=== PATIENT | male | born 1945 | race Caucasian/White ===

== ENCOUNTER 2016-12-06 00:52 | Inpatient (IN) | payer MEDICARE, OTHER ==
[2016-12-06] VITALS (13 sets, daily range): BP systolic 119–155; BP diastolic 65–88
[~2016-12-06] VITALS: Ht 177.8 cm; Wt 100.2 kg
[2016-12-06] MEDS ORDERED: hydrALAZINE 20 MG/ML VIAL. IVP PRN (03:15)
[2016-12-06] MEDS ORDERED: ONDANSETRON PF 4 MG/2 ML VIAL. IV PRN ×2 (03:15→09:30)
[2016-12-06] MEDS: IV NORMAL SALINE 1000ML BAG 1,000 ML IV SCH ×2 (03:15→11:38)
[2016-12-06] MEDS ORDERED: ACETAMINOPHEN 325 MG TABLET. PO PRN (03:15)
[2016-12-06] MEDS: FENTANYL PF 100 MCG/2 ML VIAL. IV PRN ×4 (03:43→16:41)
[2016-12-06] MEDS ORDERED: FENTANYL PF 100 MCG/2 ML VIAL. IV ONE (05:30)
[2016-12-06] MEDS ORDERED: HYDR12.53 PO (07:21)
[2016-12-06] MEDS ORDERED: ASPI81TA2 PO (07:23)
--- NOTE | 2016-12-06 09:49 | RAD ---
AP portable chest radiograph 12/06/2016 Clinical History: Preop evaluation gallbladder surgery. An AP portable erect digital radiograph of the chest was obtained. No previous studies are available for comparison. The cardiac silhouette is borderline enlarged. The thoracic aorta is tortuous. Linear bands of subsegmental atelectasis and/or infiltrate are seen involving both lower lobes, left greater than right. No pneumothorax or pleural effusion is seen. Degenerative changes are seen involving the thoracic spine and both shoulders. Impression: Areas of subsegmental atelectasis and/or infiltrate are seen involving both lower lobes, left greater than right.
[2016-12-06 10:04] LABS: BASO # 0.1 x10^3/uL (0.0-0.2); BASO % 1 % (0-3); EOS % 8 % (0-3); HEMATOCRIT 38.1 % (39.0-53.0); LYMPH # 1.8 x10^3/uL (1.0-4.8); LYMPH % 30 % (24-48); MEAN CORPUSCULAR HEMOGLOBIN 29 pg (25-35); MEAN CORPUSCULAR HGB CONC 34 g/dL (31-37); MEAN CORPUSCULAR VOLUME 84 fL (79-100); MONO % 14 % (0-9); NEUT % 47 % (31-73); PLATELET COUNT 206 x10^3/uL (140-400); RED BLOOD COUNT 4.54 x10^6/uL (4.30-5.70); RED CELL DISTRIBUTION WIDTH 13.5 % (11.5-14.5); WHITE BLOOD COUNT 5.8 x10^3/uL (4.0-11.0)
[2016-12-06 10:10] LABS: INR 1.1 (0.8-1.1); PROTHROMBIN TIME PATIENT 13.7 SEC (11.7-14.0)
--- NOTE | 2016-12-06 10:18 | PDOC1 ---
History and Physical Date of Admission Date of Admission DATE: 12/06/16 TIME: 10:11 Source Source: Chart review, Patient History of Present Illness History of Present Illness patient transferred from [place], presented with acute onset of RUQ pain, pain to palpation, pain also pleuritic, s/p IV fentanyl, he reports pain 5./ 10, and is watching the clock for his next dose otherwise healthy prior tobacco, OA kneed mild HTN only CT scan at [facility] showed marked inflammed gallbladder without impacted stone visualized, he go Levaquin and Flagyl overnight near midnight Past Medical History Cardiovascular: HTN Pulmonary: No pertinent hx GI: No pertinent hx Heme/Onc: No pertinent hx Hepatobiliary: No pertinent hx Psych: No pertinent hx Musculoskeletal: Stiffness (knees, OA) Rheumatologic: No pertinent hx Infectious disease: No pertinent hx ENT: No pertinent hx Endocrine: Other (he is worried about developing Dm2, takes cinnamon , ?) Dermatology: No pertinent hx Past Surgical History Past Surgical History: Total knee replacement Family History Family History: No Significant Social History Smoke: Quit ALCOHOL: rare Current Medications Current Medications Current Medications Acetaminophen 650 mg 650 mg QIDPRN PRN PO MILD PAIN / TEMP; Start 12/06/16 at 03 :15 Sodium Chloride (Iv Sodium Chloride 0.9% 1000ml Bag) 1,000 ml @ 75 mls/hr [id number] IV ; Start 12/06/16 at 03:15 Fentanyl Citrate (Fentanyl 2ml Vial) 25 mcg PRN Q2HR PRN IV severe pain Last administered on 12/06/16t 07:47; Start 12/06/16 at 03:15; Stop 12/06/16 at 09:17; Status DC Hydralazine HCl (Apresoline) 10 mg PRN Q4HRS PRN IVP ELEVATED BP, SEE COMMENTS ; Start 12/06/16 at 03:15 Ondansetron HCl (Zofran) 4 mg PRN Q4HRS PRN IV NAUSEA/VOMITING; Start 12/06/16 at 03:15; Stop 12/06/16 at 09:19; Status DC Fentanyl Citrate (Fentanyl 2ml Vial) 25 mcg 1X ONCE IV Last administered on t 05:13; Start 12/06/16 at 05:30; Stop 12/06/16 at 05:31; Status DC Fentanyl Citrate (Fentanyl 2ml Vial) 50 mcg PRN Q2HR PRN IV severe pain; Start 12/06/16 at 09:30 Ondansetron HCl (Zofran) 4 mg PRN Q8HRS PRN IV NAUSEA/VOMITING; Start 12/06/16 at 09:30 Active Scripts Active Reported Aspirin 81 Mg Tab.chew Unknown Dose PO Hydrochlorothiazide Capsule (Hydrochlorothiazide) 12.5 Mg Capsule Unknown Dose PO DAILY Allergies Allergies: Coded Allergies: Penicillins (Verified Allergy, Intermediate, 12/06/16) morphine (Verified Allergy, Intermediate, 12/06/16) ROS General: No: Appetite, Chills, Fatigue, Malaise, Night Sweats, Other PSYCHOLOGICAL ROS: No: Anxiety, Behavioral Disorder, Concentration difficultie , Decreased libido, Depression, Disorientation, Hallucinations, Hostility, Irritablity, Memory difficulties, Mood Swings, Obsessive thoughts, Other, Physical abuse, Sexual abuse, Sleep disturbances, Suicidal ideation Eyes: No Blurry vision, No Decreased vision, No Double vision, No Dry eyes, No Excessive tearing, No Eye Pain, No Itchy Eyes, No Loss of vision, No Other, No Photophobia, No Scotomata, No Uses contacts, No Uses glasses HEENT: No: Epistaxis, Heacaches, Hearing change, Nasal congestion, Nasal discharge, Oral lesions, Other, Sinus pain, Sneezing, Snoring, Sore Throat, Tinnitus, Vertigo, Visual Changes, Vocal changes Respiratory: No: Cough, Hemoptysis, Orthopnea, Other, Pleuritic Pain, SOB with excertion, Shortness of breath, Sputum Changes, Stridor, Tachypnea, Wheezing Cardiovascular: No Chest Pain, No Edema, No Lt Headedness, No Orthopnea, No Other, No Palpitations, No Paroxysmal Noc. Dyspnea Gastrointestinal: Yes Abdominal Pain, No Constipation, No Diarrhea, No Hematochezia, No Melena, No Nausea, No Other , No Vomiting Genitourinary: No , No , No , No , No , No , No , No Discharge, No Dysuria, No Flank Pain, No Frequency, No Hematuria, No Incontinence, No Other, No Pain, No Retention, No Urgency Musculoskeletal: Yes Joint Pain (knees), No Gait Disturbance, No Joint Stiffness, No Joint Swelling, No Muscle Pain, No Muscular Weakness, No Other, No Pain In:, No Swelling In: Neurological: No Behavorial Changes, No Bowel/Bladder ControlChng, No Confusion , No Dizziness, No Gait Disturbance, No Headaches, No Impaired Coord/balance, No Memory Loss, No Numbness/Tingling, No Other, No Seizures, No Speech Problems , No Tremors, No Visual Changes, No Weakness Physical Exam General: Oriented X3, Cooperative, mild distress HEENT: Atraumatic, PERRLA, EOMI, Mucous membr. moist/pink Lungs: Clear to auscultation, Normal air movement Heart: S1S2, no murmurs Abdomen: Normal bowel sounds, Other (very tender, guarding RUQ, min pressure caused pain) Rectal Exam: not examined Extremities: No cyanosis, No edema, Normal pulses Skin: No rashes, No breakdown, No significant lesion Neuro: Normal speech, Sensation intact, Cranial nerves 3-12 NL, Reflexes 2+, Other Psych/Mental Status: Mood NL Vitals Vitals Vital Signs Date Time Temp Pulse Resp B/P Pulse Ox O2 Delivery O2 Flow Rate FiO2 12/06/16 07:00 98.0 86 18 137/83 93 Room Air 98.0 Labs Labs Laboratory Tests Test 12/06/16 09:45 White Blood Count 5.8x10^3/uL (4.0-11.0) Red Blood Count 4.54x10^6/uL (4.30-5.70) Hemoglobin 13.0g/dL (13.0-17.5) Hematocrit 38.1% (39.0-53.0) Mean Corpuscular Volume 84fL (79-100) Mean Corpuscular Hemoglobin 29pg (25-35) Mean Corpuscular Hemoglobin Concent 34g/dL (31-37) Red Cell Distribution Width 13.5% (11.5-14.5) Platelet Count 206x10^3/uL (140-400) Neutrophils (%) (Auto) 47% (31-73) Lymphocytes (%) (Auto) 30% (24-48) Monocytes (%) (Auto) 14% (0-9) Eosinophils (%) (Auto) 8% (0-3) Basophils (%) (Auto) 1% (0-3) Neutrophils # (Auto) 2.7x10^3uL (1.8-7.7) Lymphocytes # (Auto) 1.8x10^3/uL (1.0-4.8) Monocytes # (Auto) 0.8x10^3/uL (0.0-1.1) Eosinophils # (Auto) 0.4x10^3/uL (0.0-0.7) Basophils # (Auto) 0.1x10^3/uL (0.0-0.2) Prothrombin Time 13.7SEC (11.7-14.0) Prothromb Time International Ratio 1.1 (0.8-1.1) Laboratory Tests Test 12/06/16 09:45 White Blood Count 5.8x10^3/uL (4.0-11.0) Red Blood Count 4.54x10^6/uL (4.30-5.70) Hemoglobin 13.0g/dL (13.0-17.5) Hematocrit 38.1% (39.0-53.0) Mean Corpuscular Volume 84fL (79-100) Mean Corpuscular Hemoglobin 29pg (25-35) Mean Corpuscular Hemoglobin Concent 34g/dL (31-37) Red Cell Distribution Width 13.5% (11.5-14.5) Platelet Count 206x10^3/uL (140-400) Neutrophils (%) (Auto) 47% (31-73) Lymphocytes (%) (Auto) 30% (24-48) Monocytes (%) (Auto) 14% (0-9) Eosinophils (%) (Auto) 8% (0-3) Basophils (%) (Auto) 1% (0-3) Neutrophils # (Auto) 2.7x10^3uL (1.8-7.7) Lymphocytes # (Auto) 1.8x10^3/uL (1.0-4.8) Monocytes # (Auto) 0.8x10^3/uL (0.0-1.1) Eosinophils # (Auto) 0.4x10^3/uL (0.0-0.7) Basophils # (Auto) 0.1x10^3/uL (0.0-0.2) Prothrombin Time 13.7SEC (11.7-14.0) Prothromb Time International Ratio 1.1 (0.8-1.1) VTE Prophylaxis Ordered VTE Prophylaxis Devices: Yes VTE Pharmacological Prophylaxi: Contraindicated (may need surg today) Assessment/Plan Assessment/Plan Acute abd pain, RUQ pain, + Mckeon sign CT scan at [facility], gallbladder thickening, without impaced stone reported no fever, white cout 7.8 last night, repeat labs now, no bili, check chem 12 admit, acute gloria, surg consult, GI consult htn, on HCTZ mild obesity, BMi 31.7 GINA MCGRATH MD Dec 06, 2016 10:18
--- NOTE | 2016-12-06 10:29 | PDOC2 ---
GI CONSULT Reason For Consult: Cholecystitis HPI: HPI: 71 y/o male from [facility]. Was evaluated there for RUQ pain. Had one instance of this on 12/03 that resolved. Pain recurred yesterday and was much worse. Began on drive home after at [facility] for PT (recent right knee replacement), was unrelieved w/ rest and Sprite at home, vomited a few times. Worse w/ deep breathing. [facility] workup showed normal WBC, Hgb, plt, Cr, lipase, and LFTs. CT abd showed gallbladder distention w/ wall thickening and inflammatory changes c/ w cholecystitis. Labs so far here as below. Surgery consult pending. GI history significant for GERD controlled w/ famotidine Q a.m. w/ previous EGD years ago in [place] and occasional constipation improved w/ increased water intake w / previous colonoscopy (I believe at the [facility]) w/ benign polyps ~5 years ago (w/ 10 year follow-up recommended). Is on ASA 81mg QD due to recent knee surgery. PMH: PMH: HTN, HLD, GERD, constipation, arthritis, bilateral knee replacements (right last month), right rotator cuff repair, appendectomy, vasectomy FH: Family History: Cancer (breast) Social History: Smoke: Quit ALCOHOL: rare Drugs: None ROS: GEN: Denies fevers, chills, sweats HEENT: Denies blurred vision, sore throat CV: Denies chest pain RESP: Denies shortness of air, cough GI: Per HPI : Denies hematuria, dysuria ENDO: Denies weight changes NEURO: Denies confusion, dizziness MSK: +joint pain SKIN: Denies jaundice, pruritus VItals: Vitals: Vital Signs Date Time Temp Pulse Resp B/P Pulse Ox O2 Delivery O2 Flow Rate FiO2 12/06/16 07:00 98.0 86 18 137/83 93 Room Air 98.0 Labs: Labs: Laboratory Tests Test 12/06/16 09:45 White Blood Count 5.8x10^3/uL (4.0-11.0) Red Blood Count 4.54x10^6/uL (4.30-5.70) Hemoglobin 13.0g/dL (13.0-17.5) Hematocrit 38.1% (39.0-53.0) Mean Corpuscular Volume 84fL (79-100) Mean Corpuscular Hemoglobin 29pg (25-35) Mean Corpuscular Hemoglobin Concent 34g/dL (31-37) Red Cell Distribution Width 13.5% (11.5-14.5) Platelet Count 206x10^3/uL (140-400) Neutrophils (%) (Auto) 47% (31-73) Lymphocytes (%) (Auto) 30% (24-48) Monocytes (%) (Auto) 14% (0-9) Eosinophils (%) (Auto) 8% (0-3) Basophils (%) (Auto) 1% (0-3) Neutrophils # (Auto) 2.7x10^3uL (1.8-7.7) Lymphocytes # (Auto) 1.8x10^3/uL (1.0-4.8) Monocytes # (Auto) 0.8x10^3/uL (0.0-1.1) Eosinophils # (Auto) 0.4x10^3/uL (0.0-0.7) Basophils # (Auto) 0.1x10^3/uL (0.0-0.2) Prothrombin Time 13.7SEC (11.7-14.0) Prothromb Time International Ratio 1.1 (0.8-1.1) Allergies: Coded Allergies: Penicillins (Verified Allergy, Intermediate, 12/06/16) morphine (Verified Allergy, Intermediate, 12/06/16) Medications: Current Medications Medications (Trade) Dose Ordered Sig/Radha Route PRN Reason Start Time Stop Time Status Last Admin Dose Admin Fentanyl Citrate (Fentanyl 2ml Vial) 25 mcg PRN Q2HR PRN IV severe pain 12/06/16 03:15 12/06/16 09:17 DC 12/06/16 07:47 Fentanyl Citrate (Fentanyl 2ml Vial) 25 mcg 1X ONCE IV 12/06/16 05:30 12/06/16 05:31 DC 12/06/16 05:13 Imaging: Imaging: CXR 12/07/15 Impression: Areas of subsegmental atelectasis and/or infiltrate are seen involving both lower lobes, left greater than right. PE: GEN: NAD, pleasant HEENT: Atraumatic, PERRL LUNGS: clear anteriorly HEART: RRR ABD: NABS, RUQ tenderness EXTREMITY: No edema SKIN: No rashes, no jaundice NEURO/PSYCH: A & O 3 OTHER: present A/P: A/P: RUQ pain, vomiting -pain occurred 3/4 and resolved, recurred (worse) 3/6 w/ vomiting Abnormal CT -suggesting cholecystitis -on IV atbx H/o GERD -controlled w/ H2 ambar QD, previous EGD Constipation -occasional, improved w/ increased water intake CRC screen, h/o polyps -~5 years ago, reports 10 year f/u recommended Recent knee surgery -on ASA -- Surgery consulted. Will check abd US. CMP already ordered. CHAUNCEY OVALLES Dec 06, 2016 10:29
[2016-12-06 11:02] LABS: CALCIUM 8.8 mg/dL (8.5-10.1); CREATININE 0.7 mg/dL (0.7-1.3); GFR 111.8; POTASSIUM 3.8 mmol/L (3.5-5.1); TOTAL BILIRUBIN 1.2 mg/dL (0.2-1.0); TOTAL PROTEIN 5.9 g/dL (6.4-8.2)
--- NOTE | 2016-12-06 11:12 | PDOC2 ---
CONSULT Date of Consult Date of Consult DATE: 12/06/16 TIME: 11:10 Past Medical History Cardiovascular: HTN Pulmonary: No pertinent hx GI: No pertinent hx Heme/Onc: No pertinent hx Hepatobiliary: No pertinent hx Psych: No pertinent hx Musculoskeletal: Stiffness (knees, OA) Rheumatologic: No pertinent hx Infectious disease: No pertinent hx ENT: No pertinent hx Endocrine: Other (he is worried about developing Dm2, takes cinnamon , ?) Dermatology: No pertinent hx Past Surgical History Past Surgical History: Total knee replacement Family History Family History: No Significant Social History Quit ALCOHOL: rare Drugs: None Current Medications Current Medications Current Medications Acetaminophen 650 mg 650 mg QIDPRN PRN PO MILD PAIN / TEMP; Start 12/06/16 at 03 :15 Sodium Chloride (Iv Sodium Chloride 0.9% 1000ml Bag) 1,000 ml @ 75 mls/hr [id number] IV ; Start 12/06/16 at 03:15 Fentanyl Citrate (Fentanyl 2ml Vial) 25 mcg PRN Q2HR PRN IV severe pain Last administered on 12/06/16 07:47; Start 12/06/16 at 03:15; Stop 12/06/16 at 09:17; Status DC Hydralazine HCl (Apresoline) 10 mg PRN Q4HRS PRN IVP ELEVATED BP, SEE COMMENTS ; Start 12/06/16 at 03:15 Ondansetron HCl (Zofran) 4 mg PRN Q4HRS PRN IV NAUSEA/VOMITING; Start 12/06/16 at 03:15; Stop 12/06/16 at 09:19; Status DC Fentanyl Citrate (Fentanyl 2ml Vial) 25 mcg 1X ONCE IV Last administered on 05:13; Start 12/06/16 at 05:30; Stop 12/06/16 at 05:31; Status DC Fentanyl Citrate (Fentanyl 2ml Vial) 50 mcg PRN Q2HR PRN IV severe pain Last administered on 12/06/16 10:44; Start 12/06/16 at 09:30 Ondansetron HCl 4 mg 4 mg PRN Q8HRS PRN IV NAUSEA/VOMITING; Start 12/06/16 at 09 :30 Metronidazole (FLAGYL 500Mmg PREMIX) 100 ml @ 100 mls/hr Q8HRS IV ; Start at 11:00 Active Scripts Active Reported Aspirin 81 Mg Tab.chew Unknown Dose PO Hydrochlorothiazide Capsule (Hydrochlorothiazide) 12.5 Mg Capsule Unknown Dose PO DAILY Allergies Allergies: Coded Allergies: Penicillins (Verified Allergy, Intermediate, 12/06/16) morphine (Verified Allergy, Intermediate, 12/06/16) Vitals VITALS Vital Signs Date Time Temp Pulse Resp B/P Pulse Ox O2 Delivery O2 Flow Rate FiO2 12/06/16 07:00 98.0 86 18 137/83 93 Room Air 98.0 Labs Labs Laboratory Tests Test 12/06/16 09:45 White Blood Count 5.8x10^3/uL (4.0-11.0) Red Blood Count 4.54x10^6/uL (4.30-5.70) Hemoglobin 13.0g/dL (13.0-17.5) Hematocrit 38.1% (39.0-53.0) Mean Corpuscular Volume 84fL (79-100) Mean Corpuscular Hemoglobin 29pg (25-35) Mean Corpuscular Hemoglobin Concent 34g/dL (31-37) Red Cell Distribution Width 13.5% (11.5-14.5) Platelet Count 206x10^3/uL (140-400) Neutrophils (%) (Auto) 47% (31-73) Lymphocytes (%) (Auto) 30% (24-48) Monocytes (%) (Auto) 14% (0-9) Eosinophils (%) (Auto) 8% (0-3) Basophils (%) (Auto) 1% (0-3) Neutrophils # (Auto) 2.7x10^3uL (1.8-7.7) Lymphocytes # (Auto) 1.8x10^3/uL (1.0-4.8) Monocytes # (Auto) 0.8x10^3/uL (0.0-1.1) Eosinophils # (Auto) 0.4x10^3/uL (0.0-0.7) Basophils # (Auto) 0.1x10^3/uL (0.0-0.2) Prothrombin Time 13.7SEC (11.7-14.0) Prothromb Time International Ratio 1.1 (0.8-1.1) Sodium Level 143mmol/L (136-145) Potassium Level 3.8mmol/L (3.5-5.1) Chloride Level 107mmol/L (98-107) Carbon Dioxide Level 28mmol/L (21-32) Anion Gap 8 (6-14) Blood Urea Nitrogen 11mg/dL (8-26) Creatinine 0.7mg/dL (0.7-1.3) Estimated GFR (Cockcroft-Gault) 111.8 BUN/Creatinine Ratio 16 (6-20) Glucose Level 98mg/dL (70-99) Calcium Level 8.8mg/dL (8.5-10.1) Total Bilirubin 1.2mg/dL (0.2-1.0) Gamma Glutamyl Transpeptidase 34U/L (10-85) Aspartate Amino Transf (AST/SGOT) 10U/L (15-37) Alanine Aminotransferase (ALT/SGPT) 18U/L (16-63) Alkaline Phosphatase 81U/L (46-116) Total Protein 5.9g/dL (6.4-8.2) Albumin 3.0g/dL (3.4-5.0) Albumin/Globulin Ratio 1.0 (1.0-1.7) Laboratory Tests Test 12/06/16 09:45 White Blood Count 5.8x10^3/uL (4.0-11.0) Red Blood Count 4.54x10^6/uL (4.30-5.70) Hemoglobin 13.0g/dL (13.0-17.5) Hematocrit 38.1% (39.0-53.0) Mean Corpuscular Volume 84fL (79-100) Mean Corpuscular Hemoglobin 29pg (25-35) Mean Corpuscular Hemoglobin Concent 34g/dL (31-37) Red Cell Distribution Width 13.5% (11.5-14.5) Platelet Count 206x10^3/uL (140-400) Neutrophils (%) (Auto) 47% (31-73) Lymphocytes (%) (Auto) 30% (24-48) Monocytes (%) (Auto) 14% (0-9) Eosinophils (%) (Auto) 8% (0-3) Basophils (%) (Auto) 1% (0-3) Neutrophils # (Auto) 2.7x10^3uL (1.8-7.7) Lymphocytes # (Auto) 1.8x10^3/uL (1.0-4.8) Monocytes # (Auto) 0.8x10^3/uL (0.0-1.1) Eosinophils # (Auto) 0.4x10^3/uL (0.0-0.7) Basophils # (Auto) 0.1x10^3/uL (0.0-0.2) Prothrombin Time 13.7SEC (11.7-14.0) Prothromb Time International Ratio 1.1 (0.8-1.1) Sodium Level 143mmol/L (136-145) Potassium Level 3.8mmol/L (3.5-5.1) Chloride Level 107mmol/L (98-107) Carbon Dioxide Level 28mmol/L (21-32) Anion Gap 8 (6-14) Blood Urea Nitrogen 11mg/dL (8-26) Creatinine 0.7mg/dL (0.7-1.3) Estimated GFR (Cockcroft-Gault) 111.8 BUN/Creatinine Ratio 16 (6-20) Glucose Level 98mg/dL (70-99) Calcium Level 8.8mg/dL (8.5-10.1) Total Bilirubin 1.2mg/dL (0.2-1.0) Gamma Glutamyl Transpeptidase 34U/L (10-85) Aspartate Amino Transf (AST/SGOT) 10U/L (15-37) Alanine Aminotransferase (ALT/SGPT) 18U/L (16-63) Alkaline Phosphatase 81U/L (46-116) Total Protein 5.9g/dL (6.4-8.2) Albumin 3.0g/dL (3.4-5.0) Albumin/Globulin Ratio 1.0 (1.0-1.7) Assessment/Plan Assessment/Plan FND Wk # [id number] acute cholecystitis for l/s cholecystectomy R/B/A explained he will proceed Thanks for consult LOLI MCGHEE MD Dec 06, 2016 11:12
[2016-12-06] MEDS ORDERED: BUPIVAC MPF-EPI 0.5%-1:200000 30 ML VIAL. ONE (11:20)
[2016-12-06] MEDS ORDERED: SURGICEL HEMOSTAT 4X8 EACH. ONE (11:20)
[2016-12-06] MEDS ORDERED: IOHEXOL 300 MG/ML 50 ML VIAL. ONE (11:21)
[2016-12-06] MEDS ORDERED: ONDANSETRON PF 4 MG/2 ML VIAL. ONE (11:32)
[2016-12-06] MEDS ORDERED: PROPOFOL 20 ML IV ONE (11:32)
[2016-12-06] MEDS ORDERED: DEXAMETHASONE SOD PHOS 20 MG/5 ML VIAL. ONE (11:32)
[2016-12-06] MEDS ORDERED: LIDOCAINE 2% 100 MG/5 ML DISP.SYRIN. ONE (11:32)
[2016-12-06] MEDS ORDERED: ROCURONIUM 50 MG/5 ML VIAL. ONE (11:33)
[2016-12-06] MEDS ORDERED: FENTANYL PF 100 MCG/2 ML VIAL. ONE ×2 (11:33→12:22)
[2016-12-06] MEDS ORDERED: DESFLURANE > 120 MINUTES IH ONE (11:48)
[2016-12-06] MEDS: METRONIDAZOLE 500mg PREMIX 100 ML IV SCH ×2 (11:57→21:51)
[2016-12-06] MEDS ORDERED: NEOSTIGMINE METHYLSULFATE 5 MG/5 ML SYRINGE. ONE (12:19)
[2016-12-06] MEDS ORDERED: GLYCOPYRROLATE 1 MG/5 ML VIAL. ONE (12:20)
[2016-12-06] MEDS ORDERED: IV RINGERS,LACTATED 1000ML 1,000 ML IV SCH (12:32)
[2016-12-06] MEDS ORDERED: DIPHENHYDRAMINE 50 MG/ML VIAL IV PRN (12:45)
[2016-12-06] MEDS ORDERED: MIDAZOLAM HCL 2 MG/2 ML VIAL. IV PRN ×2 (12:45)
[2016-12-06] MEDS ORDERED: MEPERIDINE PF 25 MG/ML VIAL. IV PRN (12:45)
[2016-12-06] MEDS ORDERED: PROCHLORPERAZINE 10 MG/2 ML VIAL. IV PRN (12:45)
[2016-12-06] MEDS ORDERED: FENTANYL PF 100 MCG/2 ML VIAL. IV PRN ×3 (12:45)
[2016-12-06] MEDS ORDERED: LIDOCAINE 1% 1 ML SYRINGE. ID PRN (12:45)
--- NOTE | 2016-12-06 12:46 | RAD ---
Intraoperative cholangiogram 12/06/2016 Clinical history: Laparoscopic cholecystectomy. Fluoroscopic assistance was provided during an intraoperative cholangiogram. The total fluoroscopic time is listed as 15 seconds. 3 Digital spot radiographs of the right upper quadrant of the abdomen were obtained. These images demonstrate contrast opacifying the cystic duct remnant, common hepatic duct, left and right hepatic ducts and their branches and the common bile duct. Free spillage of contrast into the duodenum is noted. No filling defect is seen. Impression: Negative study.
--- NOTE | 2016-12-06 13:22 | PDOC ---
BRIEF OPERATIVE NOTE Date: Dec 06, 2016 Pre-Op Diagnosis acute cholecystitis Post-Op Diagnosis same with gangrenous cholecystitis Procedure Performed l/s cholecystectomy with cholangiograms Surgeon Margarito Supervisor Rubber Covering Gricelda SERRANO Anesthesia Type: General Blood Loss 20cc IV Fluid 1100cc Specimens Obtained GB Findings acute cholecystitis with gangrenous changes Complications none Additional Remarks Wk # [id number] LOLI MCGHEE MD Dec 06, 2016 13:22
--- NOTE | 2016-12-06 13:57 | EKG ---
[facility] [address] [place] [address] Test Date: 2016-12-06 Test Time: 13:56:33 Pat Name: MAHESH MERCEDES Department: Room: [facility] Gender: M Biology Specialist: JENNIFER : 1945 Requested By: GINA MCGRATH Order Number: [id number] Reading MD: Measurements Intervals Drift Rate: 89 P: 46 NM: 132 QRS: -18 QRSD: 90 T: 13 QT: 348 QTc: 424 Interpretive Statements SINUS RHYTHM LEFTWARD AXIS NO SPECIFIC ECG ABNORMALITIES RI6.01 No previous ECG available for comparison
--- NOTE | 2016-12-06 16:58 | OP ---
DATE OF SURGERY: 12/06/2016 PREOPERATIVE DIAGNOSIS: Acute cholecystitis. POSTOPERATIVE DIAGNOSIS: Acute cholecystitis with gangrenous cholecystitis. PROCEDURE: Laparoscopic cholecystectomy with cholangiogram. SURGEON: Jim Mcghee MD RESIDENCE DIRECTOR: ZACH Milton ANESTHESIA: General endotracheal. ESTIMATED BLOOD LOSS: 20 mL. IV FLUIDS: 1100 mL. INDICATIONS: The patient is a 71-year-old with right upper quadrant pain and the CT consistent with acute cholecystitis, brought for cholecystectomy. OPERATIVE FINDINGS: The gallbladder was acutely inflamed with some gangrenous changes. It was enveloped with omentum. There was a small amount of turbid fluid in the right upper quadrant. There were some omental adhesions in the right lower quadrant from remote open appendectomy. Remainder of the inspection of the abdomen failed to reveal obvious abnormalities. DESCRIPTION OF PROCEDURE: The patient was brought to the operating suite, given a general endotracheal anesthetic and the abdomen prepped and draped in usual sterile fashion. A supraumbilical incision was infiltrated with local anesthetic, sharply incised and a 5 mm Visiport used to gain the access into the abdominal cavity. Care was taken to avoid injury to abdominal contents. Pneumoperitoneum was established. Camera inserted and under direct vision, the epigastric, midclavicular, and lateral ports were placed. The gallbladder was exposed by taking down the omental adhesions. It was then aspirated approximately 40 mL of turbid bile to allow grasping of the fundus and retracting the gallbladder superolaterally. There were some mild fibrotic changes in the liver. The cystic duct and cystic artery were carefully exposed. A small vessel to the cystic duct was clipped to help with its exposure. We then clipped it on the gallbladder side. Cholangiograms were made. These were normal. In light of this, the catheter was removed. The cystic duct was clipped x 2 and divided, taking care to avoid injury or compromise the common duct. The cystic artery was then clipped and divided and the gallbladder freed from the bed with cautery dissection. The posterior branch of the cystic artery was encountered part way up the fossa, controlled with the clips and the gallbladder freed from the bed and placed in an EndoCatch bag. Hemostasis obtained with cautery and a small piece of Surgicel. A 19-Armenian round Sebastian drain was brought through the epigastric port out the lateral ports, sewn to the skin with silk stitch and left in the subhepatic space for postoperative drainage. Table returned to level. Gallbladder delivered through the epigastric incision. Epigastric incision closed with interrupted 0 Vicryl suture. Intra-abdominal pressure decreased to 6 cm of water. No bleeding from the epigastric closure or from the midclavicular port site after its removal or from the drain site. Abdomen then decompressed, camera slowly removed, no bleeding seen. Skin incisions closed with subcuticular 4-0 Monocryl. Steri-Strips and sterile dressings applied. The patient was awakened from his anesthetic and taken to the recovery room in satisfactory condition. JIM MCGHEE MD DR: ANJANA/lay JOB#: [id number] / [id number]
[2016-12-06] MEDS: OXYCODONE/APAP 5/325 TABLET. PO PRN (19:50)
[2016-12-06] MEDS ORDERED: ENOXAPARIN 40 MG/0.4 ML DISP.SYRIN. SQ SCH (22:00)
[2016-12-06] MEDS ORDERED: LEVOFLOXACIN 500 MG TABLET PO SCH (22:00)
[2016-12-07] MEDS: IV NORMAL SALINE 1000ML BAG 1,000 ML IV SCH (01:53)
[2016-12-07 03:00] VITALS: BP 119/82
[2016-12-07] MEDS: OXYCODONE/APAP 5/325 TABLET. PO PRN ×2 (04:25→12:07)
[2016-12-07] MEDS: METRONIDAZOLE 500mg PREMIX 100 ML IV SCH (05:43)
[2016-12-07 07:46] VITALS: BP 133/70
--- NOTE | 2016-12-07 10:29 | CONS ---
DATE OF CONSULTATION: 12/06/2016 SUBJECTIVE: The patient is a 71-year-old gentleman who last Monday after lunch went home, sat in his recliner, and developed some right upper quadrant pain. He thought laying a pillow over the area and pressing down would help, but this aggravated this problem. He went to bed Monday night and felt better Monday morning. Yesterday, he had a similar episode of sharp pain in the right upper quadrant in the afternoon, only this time it did not resolve. He was seen in the [facility] where [facility] scan showed thickening of the wall of his gallbladder. Because of unavailable surgical care there, he was transferred to [place], and we were asked to see him for evaluation of his complaints. He denies any similar previous episodes or history of specific food intolerance. He is active and otherwise healthy. PAST SURGICAL HISTORY: Bilateral total knee replacements, most recently last month on the right side. He had an appendectomy many, many years ago. PAST MEDICAL HISTORY: Medically, some hypertension, hyperlipidemia, GERD, low back pain. ALLERGIES: He is allergic to PENICILLIN and MORPHINE. ROUTINE MEDICATIONS: Include a daily aspirin and hydrochlorothiazide. SOCIAL HISTORY: He stopped smoking 2 years ago prior to his first knee replacement. He lives with his . FAMILY HISTORY: Noncontributory to this illness. REVIEW OF SYSTEMS: GENERAL: Denies chills or fevers. HEENT: No recent sore throat or earaches. RESPIRATORY: No productive cough or wheezing. CARDIAC: No chest pain or palpitations. GASTROINTESTINAL: No recent diarrhea, see HPI. GENITOURINARY: No increased frequency or dysuria. MUSCULOSKELETAL: History of osteoarthritis with knee replacements. SKIN: No recent breakdown or rashes. NEUROLOGIC: No headaches or recent visual changes. PSYCHIATRIC: No anxiety or depression. OBJECTIVE/PHYSICAL EXAMINATION: GENERAL: Reveals a well-developed, well-nourished male who is alert and oriented, in no acute distress. VITAL SIGNS: He is afebrile at 98, heart rate 86, blood pressure 137/83. HEENT: Normocephalic. EOMs intact. NECK: Supple. LUNGS: Clear. HEART: Has regular rate and rhythm. ABDOMEN: Belly is soft and nondistended. There is a well-healed right lower quadrant paramedian scar from previous appendectomy. There is tenderness to palpation in the right upper quadrant without appreciable mass. GENITAL AND RECTAL: Deferred. EXTREMITIES: Showed no gross skeletal abnormalities. There is a well-healed left knee replacement scar. There is a healing clean, dry scar on the right side that still has some Steri-Strips on. NEUROLOGIC: He is grossly intact. LABORATORY DATA: Checked at the ____ [place] last night showed a white count of 7800, hemoglobin of 14. Chemistries were unremarkable including a normal amylase, total bilirubin, and transaminases. Urinalysis shows a specific gravity of 1.057. CT scan showed some mild thickening of the gallbladder wall. IMPRESSION: 1. Right upper quadrant pain. 1.1. Cholecystitis. 1.2. Possible cholelithiasis. 2. Dehydration. 3. Hypertension. 4. Osteoarthritis. PLAN: I offered laparoscopic cholecystectomy. I explained the procedure to the patient and his who was at the bedside with risks including but not limited to bleeding, infection, injury to the bowel, liver, or bile ducts with resultant bile leak or bowel blockage. Also, the potential for an "open" procedure or having diarrhea postoperatively. He understands and will proceed. Thank you for asking us to see this gentleman and participate in his care. We will follow him with you during this hospitalization. LOLI MCGHEE MD DR: ANJANA/lay JOB#: [id number] / [id number]
--- NOTE | 2016-12-07 10:42 | PDOC ---
SURGICAL PROGRESS NOTE Subjective no c/o feels "better than before surgery" Vital Signs Vital Signs Date Time Temp Pulse Resp B/P Pulse Ox O2 Delivery O2 Flow Rate FiO2 12/07/16 07:46 98.9 84 20 133/70 93 Room Air 98.9 12/06/16 17:45 2.0 I&O Intake and Output 12/07/16 07:00 Intake Total 2870 ml Output Total 1600 ml Balance 1270 ml Intake Oral 1470 ml IV Total 1400 ml Output Urine Total 1500 ml Drainage Total 80 ml Estimated Blood Loss 20 ml PATIENT HAS A BELL: No General: Alert, Oriented X3, Cooperative, No acute distress Abdomen: Soft, Other (SIMRAN with small amount of serosanguineous output) Labs Laboratory Tests Test 12/06/16 09:45 White Blood Count 5.8x10^3/uL (4.0-11.0) Red Blood Count 4.54x10^6/uL (4.30-5.70) Hemoglobin 13.0g/dL (13.0-17.5) Hematocrit 38.1% (39.0-53.0) Mean Corpuscular Volume 84fL (79-100) Mean Corpuscular Hemoglobin 29pg (25-35) Mean Corpuscular Hemoglobin Concent 34g/dL (31-37) Red Cell Distribution Width 13.5% (11.5-14.5) Platelet Count 206x10^3/uL (140-400) Neutrophils (%) (Auto) 47% (31-73) Lymphocytes (%) (Auto) 30% (24-48) Monocytes (%) (Auto) 14% (0-9) Eosinophils (%) (Auto) 8% (0-3) Basophils (%) (Auto) 1% (0-3) Neutrophils # (Auto) 2.7x10^3uL (1.8-7.7) Lymphocytes # (Auto) 1.8x10^3/uL (1.0-4.8) Monocytes # (Auto) 0.8x10^3/uL (0.0-1.1) Eosinophils # (Auto) 0.4x10^3/uL (0.0-0.7) Basophils # (Auto) 0.1x10^3/uL (0.0-0.2) Prothrombin Time 13.7SEC (11.7-14.0) Prothromb Time International Ratio 1.1 (0.8-1.1) Sodium Level 143mmol/L (136-145) Potassium Level 3.8mmol/L (3.5-5.1) Chloride Level 107mmol/L (98-107) Carbon Dioxide Level 28mmol/L (21-32) Anion Gap 8 (6-14) Blood Urea Nitrogen 11mg/dL (8-26) Creatinine 0.7mg/dL (0.7-1.3) Estimated GFR (Cockcroft-Gault) 111.8 BUN/Creatinine Ratio 16 (6-20) Glucose Level 98mg/dL (70-99) Calcium Level 8.8mg/dL (8.5-10.1) Total Bilirubin 1.2mg/dL (0.2-1.0) Gamma Glutamyl Transpeptidase 34U/L (10-85) Aspartate Amino Transf (AST/SGOT) 10U/L (15-37) Alanine Aminotransferase (ALT/SGPT) 18U/L (16-63) Alkaline Phosphatase 81U/L (46-116) Total Protein 5.9g/dL (6.4-8.2) Albumin 3.0g/dL (3.4-5.0) Albumin/Globulin Ratio 1.0 (1.0-1.7) Assessment/Plan POD 1 l/s gloria home today f/u Monday for drain removal Problems: LOLI MCGHEE MD Dec 07, 2016 10:42
--- NOTE | 2016-12-07 10:43 | PDOC ---
Subjective: Subjective: A little post-op RUQ pain. Tolerating clears. No recurrent vomiting. Passing gas. Objective: Objective: Advancing to full liquids. Vital Signs: Vital Signs Date Time Temp Pulse Resp B/P Pulse Ox O2 Delivery O2 Flow Rate FiO2 12/07/16 07:46 98.9 84 20 133/70 93 Room Air 98.9 12/06/16 17:45 2.0 PE: GEN: NAD LUNGS: CTAB HEART: RRR ABD: drain serosang, ice pack to RUQ, mildly tender NEURO/PSYCH: A & O 3 A/P: S/p cholecystectomy 12/07/15 RUQ pain - improved -- Improved. Plans to advance diet. Added Miralax PRN w/ h/o constipation. DC per surgery/primary. CHAUNCEY OVALLES Dec 07, 2016 10:42
[2016-12-07] MEDS ORDERED: POLYETHYLENE GLYCOL 3350 17 GM PACKET. PO PRN (10:45)
[2016-12-07 11:25] VITALS: BP 113/77
[2016-12-07] MEDS ORDERED: POLY17PO5 PO (11:31)
[2016-12-07] MEDS ORDERED: OXYC1TAB7 PO (11:31)
--- NOTE | 2016-12-07 11:34 | PDOC3 ---
Discharge Summary Visit Information Date of Admission: Dec 06, 2016 Date of Discharge: Dec 07, 2016 Admitting Diagnosis: RUQ pain Final Diagnosis Problems Medical Problems: (1) Cholecystitis Status: Acute Brief Hospital Course Allergies Allergies Coded Allergies Type Severity Reaction Last Updated Verified Penicillins Allergy Intermediate 12/06/16 Yes morphine Allergy Intermediate Rash 12/06/16 Yes Vital Signs Vital Signs Date Time Temp Pulse Resp B/P Pulse Ox O2 Delivery O2 Flow Rate FiO2 12/07/16 11:25 98.1 70 18 113/77 96 Room Air 98.1 12/06/16 17:45 2.0 Lab Results Laboratory Tests Test 12/06/16 09:45 White Blood Count 5.8x10^3/uL (4.0-11.0) Red Blood Count 4.54x10^6/uL (4.30-5.70) Hemoglobin 13.0g/dL (13.0-17.5) Hematocrit 38.1% (39.0-53.0) Mean Corpuscular Volume 84fL (79-100) Mean Corpuscular Hemoglobin 29pg (25-35) Mean Corpuscular Hemoglobin Concent 34g/dL (31-37) Red Cell Distribution Width 13.5% (11.5-14.5) Platelet Count 206x10^3/uL (140-400) Neutrophils (%) (Auto) 47% (31-73) Lymphocytes (%) (Auto) 30% (24-48) Monocytes (%) (Auto) 14% (0-9) Eosinophils (%) (Auto) 8% (0-3) Basophils (%) (Auto) 1% (0-3) Neutrophils # (Auto) 2.7x10^3uL (1.8-7.7) Lymphocytes # (Auto) 1.8x10^3/uL (1.0-4.8) Monocytes # (Auto) 0.8x10^3/uL (0.0-1.1) Eosinophils # (Auto) 0.4x10^3/uL (0.0-0.7) Basophils # (Auto) 0.1x10^3/uL (0.0-0.2) Prothrombin Time 13.7SEC (11.7-14.0) Prothromb Time International Ratio 1.1 (0.8-1.1) Sodium Level 143mmol/L (136-145) Potassium Level 3.8mmol/L (3.5-5.1) Chloride Level 107mmol/L (98-107) Carbon Dioxide Level 28mmol/L (21-32) Anion Gap 8 (6-14) Blood Urea Nitrogen 11mg/dL (8-26) Creatinine 0.7mg/dL (0.7-1.3) Estimated GFR (Cockcroft-Gault) 111.8 BUN/Creatinine Ratio 16 (6-20) Glucose Level 98mg/dL (70-99) Calcium Level 8.8mg/dL (8.5-10.1) Total Bilirubin 1.2mg/dL (0.2-1.0) Gamma Glutamyl Transpeptidase 34U/L (10-85) Aspartate Amino Transf (AST/SGOT) 10U/L (15-37) Alanine Aminotransferase (ALT/SGPT) 18U/L (16-63) Alkaline Phosphatase 81U/L (46-116) Total Protein 5.9g/dL (6.4-8.2) Albumin 3.0g/dL (3.4-5.0) Albumin/Globulin Ratio 1.0 (1.0-1.7) Brief Hospital Course Mr. Henderson is a 71 old admit with Acute abd pain, RUQ pain, + Mckeon sign CT scan at [facility], gallbladder thickening, without impacted stone reported no fever, to OR on 12/06, Dr. Pimentel, some gangrenous gloria IV abx > 36 hours, DC home f/u in 2 days for drain removal Dr. Pimentel Discharge Information Condition at Discharge: Improved Follow Up: Weeks Disposition/Orders: D/C to Home Scheduled Hydrochlorothiazide (Hydrochlorothiazide Capsule ) Unknown Dose PO DAILY ( Reported) Polyethylene Glycol 3350 (Miralax) 17 GM PO DAILY Scheduled PRN Oxycodone Hcl/Acetaminophen (Oxycodone-Acetaminophen 5-325) 1 TAB PO PRN Q4HRS PRN PRN PAIN Miscellaneous Medications Aspirin (Aspirin) Unknown Dose PO (Reported) GINA MCGRATH MD Dec 07, 2016 11:34
[2016-12-07] MEDS ORDERED: POLYETHYLENE GLYCOL 3350 17 GM PACKET. PO ONE (12:00)
[2016-12-07] MEDS ORDERED: DOCUSATE SODIUM 100 MG CAPSULE PO SCH (12:00)
--- NOTE | 2016-12-07 15:10 | PATHOLOGY ---
PATHOLOGY REPORT * * * * * * * * FINAL DIAGNOSIS: Gallbladder, laparoscopic cholecystectomy: - Cholelithiasis. - Acute and chronic cholecystitis with eosinophils. COMMENT: There is no evidence of malignancy. (JPM:colt; d/t: 12/07/2016) REPORT ELECTRONICALLY SIGNED BY: Artemio Mathew M.D. DATE/TIME: 12/07/2016 15:09 * * * * * * * * GROSS PATHOLOGY: Received in formalin labeled "Mahesh Henderson - gallbladder and contents," is a 10.3 x 4.5 x 4.3 cm, enlarged and disrupted gallbladder with green-paris, diffusely hemorrhagic, and wrinkled serosal surfaces. Opening the gallbladder reveals dark green, roughened, and granular mucosa and an average wall thickness of 0.3 cm. Multiple yellow-green, irregular, and friable calculi ranging from 0.2-0.5 cm in greatest dimension are present and no masses are noted grossly. Guest Services Agent sections from the body and fundus are submitted along with the proximal margin in cassette A1. (TTL; 12/06/2016) INITIAL CPT CODE(S): A; 97836 Professional services performed [place] [address] Technical services performed by [facility] at [address] [place] [address], [facility] [address] [address]. SPECIMEN(S) RECEIVED: A.Gallbladder and contents CLINICAL HISTORY: Acute cholecystitis PATIENT: MAHESH HENDERSON /AGE: [id number] (Age: 71) PATIENT #: [id number] ALT CASE #: SPECIMEN COLLECTION DATE: 12/06/2016 SPECIMEN RECEIVED DATE: 12/06/2016 [facility] - [id number] [place] [address] - PHONE: [phone] * * * END OF REPORT * * *
== END 2016-12-07 13:45 | disposition home or self-care (01) | DRG 419 ==
LOC: 4 NORTH 02:14
PROVIDERS: ADMIT Internal Medicine; ATTEND Internal Medicine
PROC: BF101ZZ Fluoroscopy of Bile Ducts using Low Osmolar Contrast (ICD-10-PCS; 2016-12-06)
PROC: 0FT44ZZ Resection of Gallbladder, Percutaneous Endoscopic Approach (ICD-10-PCS; principal; 2016-12-06 12:00)
DX: K81.0 Acute cholecystitis (principal); I10 Essential (primary) hypertension; E78.5 Hyperlipidemia, unspecified; E66.9 Obesity, unspecified; K21.9 Gastro-esophageal reflux disease without esophagitis; M19.90 Unspecified osteoarthritis, unspecified site; Z96.653 Presence of artificial knee joint, bilateral; E86.0 Dehydration; K59.00 Constipation, unspecified; M54.5 Low back pain; Z68.31 Body mass index [BMI] 31.0-31.9, adult; Z79.82 Long term (current) use of aspirin; Z80.3 Family history of malignant neoplasm of breast; Z87.891 Personal history of nicotine dependence; Z88.0 Allergy status to penicillin; Z88.5 Allergy status to narcotic agent
CPT/HCPCS: 36415; 71010; 74300; 80053; 82977; 85027; 85610; 88304; 93005; C1782; J1100; J1650; J2405; J2704; J2710; J3010; J3490; J7030; Q9967